=== PATIENT | female | born 1985 | race Caucasian/White ===

== ENCOUNTER 2023-02-24 01:53 | Emergency (ER) | payer OTHER, SELFPAY ==
[2023-02-24 02:05] VITALS: BP 126/70; BP 128/84; PULSE 81; PULSE 99; RESP 16; TEMP 36.6; O2SAT 100; O2SAT 99; BMI 33.3
[2023-02-24 02:08] VITALS: BP 128/84; PULSE 81; RESP 16; TEMP 36.6; O2SAT 99
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
== END 2023-02-24 05:14 | disposition home or self-care (01) ==
PROVIDERS: Emergency Provider Emergency Medicine
DX: S13.9XXA Sprain of joints and ligaments of unspecified parts of neck, initial encounter (principal); V43.52XA Car driver injured in collision with other type car in traffic accident, initial encounter; Y93.9 Activity, unspecified; Y92.410 Unspecified street and highway as the place of occurrence of the external cause; Y99.9 Unspecified external cause status; R51.9 Headache, unspecified; M54.2 Cervicalgia
CPT/HCPCS: 70450; 72125; 99284